=== PATIENT | male | born 1990 | race Caucasian/White ===

== ENCOUNTER 2016-09-06 10:25 | Inpatient (IN) | payer OTHER ==
[~2016-09-06] VITALS: Ht 170.2 cm; Wt 61.3 kg
--- NOTE | ~2016-09-06 | TXPLANREV ---
"PATIENT: TIAN PIZARRO | | [facility] UNIT #: [id number] | [address] AGE/SEX: 25 M : [birth year] | [address] | [place] [address] ADMIT/REG DATE: 09/06/16 | ROOM: [facility] LOC: ADTC | ADTC | Treatment Plan/Staffing Review Date: 09/26/16 Treatment plan was reviewed and determined appropriate as written: yes Treatment plan was reviewed and the following changes/addition/deletions are necessary: Client was assigned Letting Go the Need to Control and Spirituality. Discharge plans were reviewed and determined appropriate as previously documented: yes Discharge plans were reviewed and determined to be as follows: It is recommended that client go to a halfway house or 3/4 way house once he finishes residential treatment. It is highly recommended that he go to a 1/2 way house for the structure but he does not want to apply there. Other pertinent issues discussed during this staffing review include: Client was placed on contract due to being disrespectful to staff and clients. Staff Present: Pushpa Mix, Monica Thorne PRIMARY COUNSELOR: Sabrina Irvin Client Signature Counselor Signature Date Time "
--- NOTE | ~2016-09-06 | INDIVTXPL2 ---
"PATIENT: TIAN PIZARRO | | [facility] UNIT #: [id number] | [address] AGE/SEX: 25 M : [birth year] | [address] | [place] [address] ADMIT/REG DATE: 09/06/16 | ROOM: [facility] LOC: ADTC | ADTC | Individualized Treatment Plan DATE: 09/13/16 Problem Statement/Issue Identifed: Client needs to become familiar with basics of recovery as he is new to treatment and Twelve Step Program. Goal: Client is to learn about drug addiction, identifying consequences of his use and learn how to work the AA/NA program to succeed with being clean and sober. Objectives/Activities to achieve goal: 1. Client is to read and fill out How to Get Started in Treatment, identifying how his addiction has progressed and share with his counselor and selected pages in group. Due Date: 09/19/16 Complete: Incomplete: 2. Client is to complete Step 1, learning how he has compromised his core values, and share with his counselor and selected pages in group. Due Date: 09/19/16 Complete: Incomplete: 3. Client is to attend AA/NA meetings weekly, find a temporary sponsor and call him weekly while in treatment and share his progress with his counselor. Due Date: 09/28/16 Complete: Incomplete: Client Signature Date Counselor Signaure: Date Outcome/Measurement of Progress Towards Goal: Counselor Signature: Date "
--- NOTE | ~2016-09-06 | TXPLANREV ---
"PATIENT: TIAN PIZARRO | | [facility] UNIT #: [id number] | [address] AGE/SEX: 25 M : 88 | [address] | [place] [address] ADMIT/REG DATE: 09/06/16 | [facility] LOC: ADTC | ADTC | Treatment Plan/Staffing Review Date: 09/20/16 Treatment plan was reviewed and determined appropriate as written: Client is emmettlty working on his feelings letters to his mom, sisters, and daughter. Client has also been assigned to ask for and gain 5 phone numbers of males in the 12 Step Program. Treatment plan was reviewed and the following changes/addition/deletions are necessary: No changes Discharge plans were reviewed and determined appropriate as previously documented: Client is wanting to go to a 1/2 or 3/[address] way house once he is discharged from [facility] and has filled out applications for the [facility], [facility], and [facility]. Discharge plans were reviewed and determined to be as follows: same as above Other pertinent issues discussed during this staffing review include: None Staff Present: Marcelle Beltran, Bonnie Davis PRIMARY COUNSELOR: Sabrina Irvin Client Signature Counselor Signature Date Time "
--- NOTE | ~2016-09-06 | RESCARESUM ---
PATIENT: TIAN PIZARRO | | [facility] UNIT #: [id number] | [address] AGE/SEX: 25 M : 88 | [address] | [place] [address] ADMIT/REG DATE: 09/06/16 | ROOM: [facility] LOC: ADTC | ADTC | Summary of Residential Care Primary Counselor: [facility] Date of Admission: 09/04/16 Date of Discharge: 09/28/08 Referral Source: self Primary Care Provider Prior to Admission: No primary care provider Admitting Diagnosis: F15.20 Stimulant Use Disorder, severe; F12.20 Cannabis Use Disorder, severe; F17.200 Tobacco Use Disorder, severe Discharge Diagnosis: Same as Above Goals Achieved: Client finished Getting Started in Treatment, Step 1, Anger, Letting Go the Need to Control packet. Client verbalized understanding of the severity of his powerlessness and unmanageability related to his substance use but lacked the ability to control his emotions. Client walked out of treatment 3 days before he was to be discharged due to not being excepted into a 3/4 way house and would not complete the application for a 1/2 way house. Continued Obstacles to Sobriety/Relapse Issues: Client continues to struggle with his emotions and things he cannot control which leads to him lashing out at authority figures and other clients. For example, client did not get accepted into a 3/4 way house and refused to apply to a 1/2 way house stating "I can do it on my own. You guys didn't help me one bit." He then left treatment AMA 3 days before he was to be discharged. Family Issues Addressed: Client attended family education. Y Individual Therapy Y Group Therapy Y Educational Series on Substance Abuse N Parents/Significant Others Attended Family Program N Acute Medical Problems During the Course of Treatment N Transferred to Hospital During the Course of Treatment Y Accepting of Substance Abuse Problem N Non-accepting of Substance Abuse Problem N Required Psychological or Psychiatric Consultation During the Course of Treatment Completed AA Step # 1 During This Level of Care Significant Incidences During Treatment: Client was placed on contrtact his second week in treatment due to using profanity towards the supervisor operations and other clients when he was addressed about not helping out with community clean. Client also walked out of treatment 3 days before he was to be discharged because he was not accepted into a 3/4 way house and refused to apply for a half way house. PATIENT: TIAN PIZARRO | | [facility] UNIT #: [id number] | [address] AGE/SEX: 25 M : [birth year] | [address] | [place] [address] ADMIT/REG DATE: 09/06/16 | ROOM: [facility] LOC: ADTC | ADT | Summary of Residential Care Reason For Discharge: N Completed Residential TX Goals and Ready For Next Level of Care Y Left Tx Against Medical Advice/Treatment Goals Not Complete N Completed Residential Tx Goals But Refusing Continuing Care Recommendations N Discharged Due to Noncompliance/Treatment Goals not Completed N Discharged Earlier Than Planned Due to: Continuing Care Plan/Recommendations: N Intensive Partial Care Y Sponsor N Partial Care Y AA Meetings/NA Meetings N Outpatient N Co-dependency Services N Therapeutic Community Y 1/2 Way House Y 3/4 Way House N Mental Health Therapy N Marriage Counseling N Other Specific Continuing Care Plan: It is recommended that client return to residential treatment and succesfully complete the program and then transition to a half way house, attend 4-5 AA/NA meetings per week, gain a sponsor, and work a strong program of recovery. PRIMARY COUNSELOR: Sabrina Irvin
--- NOTE | ~2016-09-06 | CLPRLASSUM ---
PATIENT: TIAN PIZARRO | | [facility] UNIT #: [id number] | [address] AGE/SEX: 25 M : 88 | [address] | [place] [address] ADMIT/REG DATE: 09/06/16 | ROOM: [facility] LOC: ADTC | ADTC | Client Problem List/Assessment Summary Date: 09/13/16 Problems identified by the client: Sick and tired of being sick and tired. Problems identified by significant others: drug use Client's Strengths: family, being a dad, funny Problem List: Client needs to become familiar with basics of recovery as he is new to treatment and Twelve Step Program. Client is experiencing family discord and distancing as a result of past drug usage. Client exhibits denial, minimization, and rationalization regarding his use of drugs. Client does not "reach-out to others for help" and instead resumes using drugs. Code Norman: T: to be addressed during course of treatment O: problem noted, expected to resolve itself with abstinence--specific tx plan not required R: problem noted, will be referred upon discharge PRIMARY COUNSELOR: Sabrina Irvin
--- NOTE | 2016-09-06 16:18 | NUR ---
ADMISSION NOTE Client is a 25 y/o single male, who states that he referred himself to treatment. Client was brought here today from [facility], by staff. Client had been there for 9 days. Client resides in [place] with his dad. Client states DOC is marijuana, last used 08/24/2016 when client smoked 2 bowls and meth, last used on the same date when client took,"a couple hits." Client states NKMA and brings no medications with him today. Client anticipates possible family group participation from his dad. Client was searched, no contraband found. Rights/Responsibilities: Copy given and explained to client. Signed and accepted by client. Client oriented to physical lay out of the ADTC unit, given Big Book and admission packet. A Adithya was assigned. Saqib
--- NOTE | 2016-09-06 19:08 | NUR ---
Step education/1 hr/ Focus was on step 11 Sought through prayer and meditation to improve conscious contact with God,praying for his will for us and the power to carry that out. Each person completed a set of questions then we discussed. This person participated.
--- NOTE | 2016-09-06 19:12 | NUR ---
Education 1HR: Clt watched half of video "Pleasures Unwoven" with staff present.
--- NOTE | 2016-09-06 20:14 | NUR ---
Individual Therapy, 1.0 hours, This session focused on orienting the client to how treatment works. Client was oriented to programming, release forms, bed checks, family education, rules, and the smoke hut. Clients treatment plan was also reviewed. Client called his mother to let her know where she was and talked to his 2 year old daughter.
--- NOTE | 2016-09-06 20:16 | NUR ---
Clients family was contacted to let them know when visiting hours were and informed of family education. Clients father was called but he was not available at this time due to working.
--- NOTE | 2016-09-06 20:16 | NUR ---
Rayshawn Note: Client has some trauma that will be addressed in individual counseling sessions.
--- NOTE | 2016-09-06 23:10 | NUR ---
Tech note: Clt played a game for rec and onsite AA mtg. Clt searched checked into room and had first into to grp. Had mtg with counselor. SE talking with daughter on phone
--- NOTE | 2016-09-07 04:26 | NUR ---
Bed Note: Clt lay motionless in bed with eyes closed showing no distress at all bed checks.
--- NOTE | 2016-09-07 13:00 | NUR ---
PEER REVIEWS 1 HR: Clt participated in peer reviews and took a risk to give open and honest feedback to those receiving a review.
--- NOTE | 2016-09-07 13:06 | NUR ---
Tech Note: Client is working on the Oculo Therapy Book.
--- NOTE | 2016-09-07 13:19 | NUR ---
Morning Group, /12 ratio, 1.5 hours, Client attended and actively participated in group. Client offered feedback to peers.
--- NOTE | 2016-09-07 22:37 | NUR ---
Tech note : Client watched movies, played games with peers and walked to an offsite AA meeting. He made a phone call to family, per counselor's permission. due to a deth in the family.
--- NOTE | 2016-09-08 04:08 | NUR ---
Bed note: Client was in bed with eyes closed and no distress at all bed checks.
--- NOTE | 2016-09-08 16:35 | NUR ---
Tech Note: Client attended N.A.Panel and is working on BB. Client had a visit today and also went for a walk.
--- NOTE | 2016-09-08 22:19 | NUR ---
Tech note : Client worked on [employer] or watched sports for rec this evening. Client walked to an offsite AA meeting.
--- NOTE | 2016-09-09 04:07 | NUR ---
Bed note: Client was in bed with eyes closed with no distress at all bed checks
--- NOTE | 2016-09-09 15:27 | HP ---
ADMIT: 09/06/2016 RM/LOC: [facility] MR#: [id number] [address] [place], [place] [address] TIAN PIZARRO [address] [place] [address] History and Physical SEX: M AGE: 25 : 1990 DATE OF SERVICE: CHIEF COMPLAINT: Chemical dependency. HISTORY OF PRESENT ILLNESS: Tian is a 25-year-old, single, male, admitted to residential level of treatment at [facility] on September 06 after detox at [facility] from August 28 through the . He states he just got sick and tired of doing drugs and he was afraid he was going to end up in group home, so he checked himself into treatment. Tian states his drug of choice was marijuana. He first started smoking pot at 11 years of age with friends. He states in chet high and high school, he smoked daily, large unknown amount. He states he really never paid attention, a unit of pot. His heaviest smoking was the last 6 years. States that he smoked before and after work and would smoke on weekends. Frequently he would smoke all day. His last marijuana was August 24 prior to going to [facility]. Second drug of choice is methamphetamines. He first started snorting meth when he was around 15 years of age. Initially it was once a week. He states he started using it on a daily basis off and on at 20. He described it as sporadic use. He states he would use a gram or so. He denies any IV drug use. His last methamphetamine use was August 24. He denies that alcohol was ever a drug of choice. He states he never really liked to drink. States he never tried any other illicit drugs. PAST MEDICAL HISTORY: Operations none. Illnesses include ADHD. MEDICATIONS: Include: 1. Wellbutrin XL 300 mg once daily. 2. He states he was on Wellbutrin SR 200 mg b.i.d. and it worked much better. 3. He also takes trazodone for sleep. ALLERGIES: NONE KNOWN. LACTOSE INTOLERANCE, ALTHOUGH NO KNOWN ALLERGIES ARE NOTED. SOCIAL HISTORY: A 25-year-old, single, male. He has a 2-year-old daughter. 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 Currently smokes half pack cigarettes daily. FAMILY HISTORY: Remarkable for heart disease in mother, maternal grandfather, and mother. Cancer in his maternal uncle. Hypertension in his mother and maternal grandfather and mother. Diabetes in mother and maternal grandfather and mother. Stroke in his mother and maternal grandfather. REVIEW OF SYSTEMS: Negative. PHYSICAL EXAM: GENERAL APPEARANCE: 25-year-old, thin male, who is ADMIT: 09/06/2016 RM/LOC: [facility] MR#: [id number] [address] [address] TIAN PIZARRO [address] [place] [id number] History and Physical SEX: M AGE: 25 : 1990 alert, oriented, in no acute distress. VITAL SIGNS: Blood pressure is 129/73 with a height of 5 feet 7 inches, weight is 61 kg, temperature is 79.9 with pulse 85. HEENT: Pupils reactive. TMs normal. Throat normal. NECK: Normal. HEART: Regular without murmur. LUNGS: Clear. ABDOMEN: Soft, nontender, and benign. AND RECTAL: Deferred. EXTREMITIES: Reveal no clubbing, cyanosis, edema, tracks, or splinter hemorrhages. NEUROLOGIC: Exam is normal including light touch, strength, DTRs. ASSESSMENT: Cannabis use disorder, severe; stimulant use disorder, severe; attention deficit hyperactivity disorder; and tobacco use disorder. PLAN: We will start him on a multivitamin and thiamine. Proceed with drug and alcohol abuse dependency treatment and counseling. We will switch him from Wellbutrin XL to Wellbutrin SR, continue his trazodone and proceed with further evaluation and management based on course during hospitalization. Please see his hospital record for the details. Emre Escalante MD/ allan JOB #: [id number] CC: Emre Escalante MD, Attending Physician NO FAMILY PHYSICIAN, Family Physician
--- NOTE | 2016-09-09 16:51 | NUR ---
Tech Note: Client attended scientology in the morning and received a visit in the afternoon. Client stated that he is working on, "Twelve steps."
--- NOTE | 2016-09-09 22:57 | NUR ---
tech note: Client attended onsite AA Panel & participated in Community Clean. Client watched tv. SE: hiding Easter Eggs.
--- NOTE | 2016-09-10 04:32 | NUR ---
tech note: client was motionless in no distress at all bed checks.
--- NOTE | 2016-09-10 10:19 | NUR ---
Tech Notes: Client is working on Getting Started
--- NOTE | 2016-09-10 11:04 | NUR ---
Education Note: Client watched video for education today.
--- NOTE | 2016-09-10 12:46 | NUR ---
Morning Group, 06/07, 1.5 hours, Client attended and actively participated in group. Client shared his hurt and ashame of treating his sister so bad. Client offered feedback to his peers and accepted feedback given to him
--- NOTE | 2016-09-10 16:00 | NUR ---
RECOVERY 101 1 HR/ All clients participated in discussing what are the fundamentals of what they learn at AA/NA meetings that will help them succeed in recovery such as meetings, sponsor, home group, working steps, service work, attending functions, slogans/acronyms as tools, etc. This client was involved and asked questions.
--- NOTE | 2016-09-10 19:16 | NUR ---
Education: 1 Hour. Client attended "Communications" lecture presented by staff.
--- NOTE | 2016-09-10 23:35 | NUR ---
Client attended N.A.Meeting and went on a walk for rec. SE: Found some of the roots for what causes his addiction
--- NOTE | 2016-09-11 04:22 | NUR ---
Bed note: Client was in bed with eyes closed with no distress at all bed checks
--- NOTE | 2016-09-11 12:19 | NUR ---
[place] res group 1 hr/ratio 1:9/ Group heard feelings letters and a step one. Discussed how addiction has affected others and how we can turn things around. This client gave feedback and related.
--- NOTE | 2016-09-11 15:44 | NUR ---
Tech Note: Client participated in light stretching for monring exercise and went for an outdoor walk in the afternoon. Client stated that he is working on, "How to Get Started in Treatment."
--- NOTE | 2016-09-11 17:00 | NUR ---
Individual Therapy, 1.0 hours, This session focused on reviewing clients BPS with client and the chain of events that had gotten him into treatment. Client's Getting Started packet was also reviewed and selected pages were assigned for him to share in group.
--- NOTE | 2016-09-11 17:14 | NUR ---
Relapse Prevention, 06/15, 1.0 hours, Client attended and actively participated in relapse prevention education which focused on high risk situations.
--- NOTE | 2016-09-11 18:52 | NUR ---
med note: client complained of headache-pain level 3. motrin was given
--- NOTE | 2016-09-11 19:23 | NUR ---
Education note: 1 hour watched video "enabler".
--- NOTE | 2016-09-11 19:33 | NUR ---
education note: 1 hour lecture by [facility] on hiv/aid/std. plus clients wwere tested for HIV.
--- NOTE | 2016-09-11 22:18 | NUR ---
Tech note: Client did not walk for rec as he was waiting for results from HIV testing. He participated in guided meditation and attended an onsite Aa meetinf.
--- NOTE | 2016-09-12 05:31 | NUR ---
Bed note : Client was in bed with eyes closed and no movement at all bed checks.
--- NOTE | 2016-09-12 12:35 | NUR ---
AM GROUP 11:1/1.5 HR: Client and peers helped to ORIENT A NEW PEER TO GROUP GUIDELINES, GOALS AND OBJECTIVES. Client and peers heard several individuals process assignments and some discussion on the disease concept. This client had asked for time to process from GETTING STARTED packet but was unfortunately the last to request time and thus the last to process. He seemed to need to hurry through the packet, describing what sounded like a somewhat "normal" childhood and adolescence. Then client started talking about vandalism, legal consequences, drugs, etc. Staff asked client how he got so off track from his early beginnings. Client became very defensive declaring, "Because I wanted to be a gang member!!" Staff was surprised, suggesting that it isn't very often that I hear something like that as a goal, but more as an ultimate outcome of illegal behaviors/drug use. Client said that he wasn't satisfied with the person he was and thought he needed to be someone else (codie I guess?). Client said he is now sick of that behavior and lifestyle and just wants to be a good dad for his 2 y/o daughter. Client still seems pretty angry and over-reactive.
--- NOTE | 2016-09-12 13:44 | NUR ---
Tech Note: Outside speaker Bari Estrada spoke at 1300. Client attended and is working on Step 1.
--- NOTE | 2016-09-12 17:28 | NUR ---
SPIRITUAL EDUCATION 1 HR. Topics today were clarifying the differences between spirituality and adventist, and playing the spiritual challenge game where they are asked thought provoking open ended questions. It is meant to inspire spiritual line of thought.
--- NOTE | 2016-09-12 22:47 | NUR ---
Tech Note : Client participated in rec by playing catch phrase and attended an onsite NA meeting.
--- NOTE | 2016-09-12 23:40 | NUR ---
Education: 1 Hour. Client attended "Disease Concept" presented by counselor.
--- NOTE | 2016-09-13 05:40 | NUR ---
Bed Note: Client was motionless with eyes closed at all bed checks.
--- NOTE | 2016-09-13 13:39 | NUR ---
PEER REVIEWS 1 HR: Clt participated in peer reviews and took a risk to give open and honest feedback to those receiving a review. The last half hour of group clients talked about loved ones and dying.
--- NOTE | 2016-09-13 15:23 | NUR ---
Individual therapy, 1.0 hours, This session focused on developing clients problems/needs list along with his treatment plan. Client shared that he thinks he can stay away from drugs but will still drink "a few beers" here and there. Client stated alcohol has never been his problem. Client was asked to make a list of pros and cons of drinking and bring it back for his next session to discuss.
--- NOTE | 2016-09-13 15:29 | NUR ---
Tech Note: Client participated in light stretching for morning exercise. Client stated that he is working on Step One.
--- NOTE | 2016-09-13 15:48 | NUR ---
Education 1 Hour: Client heard from a member of the recovery community who shared his experience, strength and hope.
--- NOTE | 2016-09-13 16:31 | NUR ---
Step Education 1 hr/ Focus was on step 12 "having had a spiritual awakening", each person completed a set of questions on paper and then we discussed. This client participated.
--- NOTE | 2016-09-13 19:43 | NUR ---
Tech note: client was off the unit for [employer] banquet and speaker event
--- NOTE | 2016-09-14 11:30 | NUR ---
Group 1.5 hr/ 10:1 Clients all heard peers share feelings letters and this client was attentive, heard others talk about parents not being there for them.
--- NOTE | 2016-09-14 13:56 | NUR ---
Tech Note: Client went with group on an outdoor walk. Client is working on Step 1.
--- NOTE | 2016-09-14 16:02 | NUR ---
Education Note: Client watched "How to Sabotage Your Treatment"
--- NOTE | 2016-09-14 16:30 | NUR ---
PEER REVIEWS 1.0 HR: Clt participated in peer reviews and took a risk to give open and honest feedback to those receiving a review.
--- NOTE | 2016-09-14 23:01 | NUR ---
TECH NOTE: Client participated in reading [employer], watched tv/movies, attended optional off site AA meeting. SE: getting clothes
--- NOTE | 2016-09-15 04:06 | NUR ---
Bed Note: Clt lay motionless in bed with eyes closed showing no distress at all bed checks.
--- NOTE | 2016-09-15 15:20 | NUR ---
Tech Note: Client is working on Step 1.
--- NOTE | 2016-09-15 22:56 | NUR ---
TECH NOTE: Client played a game for REC, attended off site AA meeting, watched TV/movies SE: phone
--- NOTE | 2016-09-16 04:49 | NUR ---
Bed Note: Clt lay motionless in bed with eyes closed showing no distress at all bed checks.
--- NOTE | 2016-09-16 15:25 | NUR ---
Tech Note: Client participated in Big Book and stated that he is working on Step One.
--- NOTE | 2016-09-16 22:59 | NUR ---
Tech Note: Client attended A.A.Panel and participated in community clean. SE:Apolonia Johnson
--- NOTE | 2016-09-17 04:52 | NUR ---
Bed Note: Client was motionless with eyes closed at all bed checks.
--- NOTE | 2016-09-17 10:23 | NUR ---
Tech notes: Client is working on Fl's
--- NOTE | 2016-09-17 15:21 | NUR ---
Individual Therapy, 1.0 hours, This session focused on review of clients Step 1 and completing releases of information to go to a 1/2 or [address] house. Client is wanting to do outpatient treatment with [facility]. Client also talked about his clinical informatics director and father and how he is greatful for them and their support.
--- NOTE | 2016-09-17 15:46 | NUR ---
Morning Group, 1.5 hours, 06/16 Clients all participated in 2 family sculptures with role-playing, feedback, and how they related.
--- NOTE | 2016-09-17 16:03 | NUR ---
RECOVERY EDUCATION 1 HR. Todays topic was on denial; good, bad, and levels, life problems being 85 percent of recovery, and distorted thinking patterns that can keep us stuck.
--- NOTE | 2016-09-17 16:31 | NUR ---
Education note: Client watched video "Nightmare on [address]"
--- NOTE | 2016-09-17 18:44 | NUR ---
Education: 1 Hour. Client attended "Feelings" lecture given by staff.
--- NOTE | 2016-09-17 22:12 | NUR ---
Tech note: Client participated in rec by playing Collactive outside. Client attended an onsite NA meeting.
--- NOTE | 2016-09-18 04:16 | NUR ---
BED NOTE: client was in bed, motionless with eyes closed all three bed checks.
--- NOTE | 2016-09-18 11:30 | NUR ---
GROUP 1.5 HRS. 1:9 Clients oriented new peer to purpose and rules of group. This client owned that he was mad but stated he didn't want to talk about it and people needed to leave him alone so he didn't blow up and get violent like he has in the past. He was confronted about that being a threat, which he denied and became defensive. Client was encouraged to share about what is going on with him and he did finally identify the fear. He shared concerns about recommendations of sober living and his fear that it won't work out. He is encouraged to stay in today and continue to talk about his fear, rather than react with anger. Client shared he is institutionalized as he was first locked up at age 11. He shed tears as he verbalized a desire to change. Client thanked counselor for helping him.
--- NOTE | 2016-09-18 16:18 | NUR ---
Relapse Prevention, 06/13 ratio, 1.0 hours, Client attended and actively participated in relapse prevention education which focused on personal reactions to high risk situtations such as personal reactions vs. personal responses, addictive thinking, irresponsible thinking, addictive behavior, irresponsible behavior, instant gratification, and emotional consequences to thoughts and actions.
--- NOTE | 2016-09-18 16:35 | NUR ---
Tech Note: Client listened to speaker Emre share his experience, strength and hope. Client is working on Feelings Letters and the Big Book.
--- NOTE | 2016-09-18 19:33 | NUR ---
Education : 1 hour lecture given by counselor on feelings.
--- NOTE | 2016-09-18 22:16 | NUR ---
Tech note: Client played catchphrase for rec, participated in guided meditation and attended AA meeting. SE:am group
--- NOTE | 2016-09-19 04:25 | NUR ---
Bed note: client was in bed with eyes closed and no distress at all bed checks.
--- NOTE | 2016-09-19 10:05 | NUR ---
Tech notes: Client is working on Fl's
--- NOTE | 2016-09-19 11:30 | NUR ---
GROUP 1.5 HRS. 1:10 Group discussion included feelings letter to mom, HOW TO GET STARTED IN TREATMENT and step 1 ASSIGNMENTS. This client shared pgs. 3, 10 and 11 identifying preoccupation, betraying values and effects on others. He initially only had 4 examples written for effects on others but was able to verbalize others.
--- NOTE | 2016-09-19 12:24 | NUR ---
AM GROUP 10:05/27.5 HR: Client and peers participated in the ORIENTATION OF THIS AND ANOTHER NEW PEER TO GROUP GUIDELINES, GOALS AND OBJECTIVES. Client identified alcohol as his drug of choice stating that he has had four DUI's. 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 Client identified this as his first treatment. All were involved as three group members processed their work from assignments. Multiple members related, several shared from their own experiences providing support and encouragement. This client asked clarifying questions from time to time, but was mostly quiet.
--- NOTE | 2016-09-19 13:30 | NUR ---
Education note: Client watched video
--- NOTE | 2016-09-19 16:26 | NUR ---
SPIRITUAL EDUCATION 1 HR. Todays topic was the ADDICTIVE SELF vs. SPIRITUAL SELF. We held discussion on who we are in our addiction vs who we are in recovery and contrasted the two.
--- NOTE | 2016-09-19 18:33 | NUR ---
Education: 1 hour lecture on self esteem given by counselor
--- NOTE | 2016-09-19 22:50 | NUR ---
Client did beads for rec and attended N.A.Meeting. SE: N.A.Meeting
--- NOTE | 2016-09-20 04:00 | NUR ---
Bed note: client was in bed with eyes closed and no distress at all bed checks.
--- NOTE | 2016-09-20 11:59 | NUR ---
Group 1.5 Hr Ratio 1:10/Topics today were a Getting Started packet, a Relapse prevention and a Self worth packet. Client shared how he could relate to what peers were sharing and also asked how cigeratte smoking could affect anxiety.
--- NOTE | 2016-09-20 15:28 | NUR ---
Tech Note: Client participated in Spiritual Enrichment in the morning and went for an outdoor walk after lunch. Client stated that he is working on writing Feelings Letters.
--- NOTE | 2016-09-20 16:16 | NUR ---
Education 1 Hour: Client heard a presentation on cross addiction.
--- NOTE | 2016-09-20 16:24 | NUR ---
Step ed. 1 hr/ focus was on step one and powerlessness. Each person answered a set of questions on paper and then we discussed out loud. This client participated.
--- NOTE | 2016-09-20 23:13 | NUR ---
TECH NOTE: Client did newcommer bookmarks for REC, participated in guided meditation, and attended AA meeting. SE: all day
--- NOTE | 2016-09-21 01:21 | NUR ---
1 HR EDUCATION: Client watched a video "Say Yes to Life" by Father Price Morelos
--- NOTE | 2016-09-21 04:42 | NUR ---
Bed Note: CLt lay motionless in bed with eyes closed showing no distress at all bed checks.
--- NOTE | 2016-09-21 11:30 | NUR ---
GROUP 1.5 HRS. 1:10 Clients participated in orienting new peers to purpose and rules of group. Discussion included consequences of addiction including the effects on family and loved ones as well as feelings and acceptance.
--- NOTE | 2016-09-21 13:57 | NUR ---
Individual Therapy, 1.0 hours, This session focused on review of clients feelings letters to both his sisters, his mother, and his daughter. Client became very emotional when he read these letters. When client began to explain certain situations he began to blame his mother and one of his sisters for being the way he was. Client was recommended to try and look at the situation from their point of view. Client was willing to try and do this.
--- NOTE | 2016-09-21 14:54 | NUR ---
PEER REVIEWS 1.5 HRS: Clt participated in peer review process and took a risk to give open and honest feedback.
--- NOTE | 2016-09-21 16:24 | NUR ---
Tech Note: Clt watched "Relapse" for afternoon video. Clt is working on Feelings Letters and reading the Big Book.
--- NOTE | 2016-09-21 22:44 | NUR ---
Tech note: Client watched tv and movies.
--- NOTE | 2016-09-22 05:22 | NUR ---
Bed note : Client was in bed motionless with eyes close at all bed checks.
--- NOTE | 2016-09-22 15:39 | NUR ---
Tech Note: Client attended A.A.Meeting at [facility] and [place] and then helped with the clubhouse cleaning, ate lunch, and listened to a speaker. Client is working on BB
--- NOTE | 2016-09-22 20:47 | NUR ---
tech note: Client played a game for recreation & attended offsite AA meeting.Client watched tv. SE: AA meeting.
--- NOTE | 2016-09-23 03:53 | NUR ---
tech note: client c/o level 3 headache @ 1353,motrin 400 mg was given.
--- NOTE | 2016-09-23 05:24 | NUR ---
Bed note: Client was in bed motionless with eyes closed at all bed checks. Client was up after first bed check for a drink and later in the shift for meds.
--- NOTE | 2016-09-23 16:21 | NUR ---
TECH NOTE: Client participated in Chapter 5 of Big Book study, attended study time, and watched tv/movies. Had visitors
--- NOTE | 2016-09-23 23:08 | NUR ---
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 Client had an attitude with the tech when he was told he needed to get off the phone because it was time for community clean. Client made a statement that he would just eating disorder psychologist line for meds. Client then came up and stood at the tech station counter and was told by tech he can't be standing there during med pass. Client told the tech "to quit picking on him." Client was mumbling under his breath & a male peer said to him "you always have to have the last word,don't you." Client's dad told tech that he wanted to give his son some money. 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 SE: .
--- NOTE | 2016-09-24 04:39 | NUR ---
Bed Note: Clt lay motionless in bed with eyes closed showing no distress at all bed checks.
--- NOTE | 2016-09-24 11:14 | NUR ---
Tech notes: Client is working on BB
--- NOTE | 2016-09-24 13:00 | NUR ---
Morning Group, 06/04 ratio, 1.5 hours, Client attended and actively participated in group discussion. Client read his feelings letters to his sisters and mother. Client accepted feedback about the letters and also apologized to the group for his anger outburst towards Monica.
--- NOTE | 2016-09-24 15:40 | NUR ---
Education note: Client attended speaker for education, Tana on Tobacco
--- NOTE | 2016-09-24 16:00 | NUR ---
Recovery 101 1 hr/ Clients all participated in reading, highlighting and discussing the Big Book on areas about honest, acceptance, living in problem vs living in solution, resentments, 1/2 measures, and the 12 promises.
--- NOTE | 2016-09-24 18:14 | NUR ---
Education: 1 hour lecture given by counselor on "forgiveness"
--- NOTE | 2016-09-24 22:28 | NUR ---
Tech note : Client went on a walk for rec and attended an onsite NA meeting. SE; All day
--- NOTE | 2016-09-25 04:16 | NUR ---
Bed note: Client was in bed with eyes closed and no distress at all bed checks.
--- NOTE | 2016-09-25 10:18 | NUR ---
Individual Therapy, 1.0 hours, This session focused on client being placed on contract due to using profanity towards staff and Monica. Client was given the book of releasing anger and was to report what he could relate to in the book. Client stated the book said that you should be able to get angry in recovery because that is how you get your feelings out. Client was urged to re-read the book and see if he could look at things in a different perspective. Client agreed to do this.
--- NOTE | 2016-09-25 12:46 | NUR ---
A.M. 1.5 hr res group/ratio 1:10/ Group heard a getting started and a goodbye letter to addiction. Discussed having resentment towards self, how kids are forgiving, and we oriented 3 new group members. This client teared up when talking about his daughter and said he feels like he abandoned her.
--- NOTE | 2016-09-25 13:20 | NUR ---
Tech Note: Client participated in light stretching for morning exercise and went for an outdoor walk in the afternoon. Client stated that he is working on, "Adan' Thinkin." Client refused his morning medication, stating that he thought it was making him angry. When asked why he thought the medication was the cause client stated, "Normally I am never angry."
--- NOTE | 2016-09-25 13:35 | NUR ---
Education One Hour: Client heard a presentation on Sexually Transmitted Disease.
--- NOTE | 2016-09-25 16:05 | NUR ---
Relapse Prevention Education, 1.0 hours, Client attended and actively participated in relapse prevention education which focused on a Relapse Prevention Quiz and discussion over the answers.
--- NOTE | 2016-09-25 20:29 | NUR ---
education note: 1 hour lecture by counselor on" what correa are you willing to pay"
--- NOTE | 2016-09-25 22:51 | NUR ---
Tech note: Client attended the Alumni meeting, participated in guided meditation and attended an onsite AA meeting. SE; All day
--- NOTE | 2016-09-26 04:57 | NUR ---
Bed note: Client was in bed with eyes closed and motionless at all bed checks.
--- NOTE | 2016-09-26 10:39 | NUR ---
Madeleine notes: Client is working on Adan Price
--- NOTE | 2016-09-26 11:30 | NUR ---
GROUP 1.5 HRS. 1:11 Discussion included the need for appropriate boundaries on the unit and working towards recovery/new behaviors, not addiction/old behaviors. Clients also discussed the effects on addiction as peers had parents that were addicts and then became the parent who addiction effected their own kids. This client encouraged peer to share feelings as he reports it helped him to do so last week in group.
--- NOTE | 2016-09-26 12:36 | NUR ---
Education note: Client had education by [facility]
--- NOTE | 2016-09-26 17:28 | NUR ---
SPIRITUAL EDUCATION 1 HR. Todays topics were orienting newcomers, and taking a look at Semaj Perez's 5 SECRETS TO SUCCESS which include a look at the miracles of the human body as blessings.
--- NOTE | 2016-09-26 20:57 | NUR ---
education: 1 hour video on unresolved anger and group discussion with counselor
--- NOTE | 2016-09-26 22:11 | NUR ---
Tech note: Client worked on beaded project and attended an onsite NA meeting. SE; NA meeting
--- NOTE | 2016-09-27 04:03 | NUR ---
Bed note: Client was in bed with eyes closed and no distress at all bed checks.
--- NOTE | 2016-09-27 10:28 | NUR ---
Tech Note: Client participated in Spiritual Enrichment. Client stated that he is working on reading the Big Book.
--- NOTE | 2016-09-27 12:54 | NUR ---
Group 1.5 Hr Ratio 1:10/Topics today were a relapse prevention, a feelings letter, a getting started and two step one's. Client shared how he could relate to what peers were sharing.
--- NOTE | 2016-09-27 13:39 | NUR ---
Education 1 Hour: Client heard a presentation from a member of the recovery community who shared his experience, strength and hope.
--- NOTE | 2016-09-27 16:33 | NUR ---
FAMILY EDUCATION 3 HRS. Client attended alone and took part in the discussion on the disease concept. Client shared chemical history and the consequences.
--- NOTE | 2016-09-27 18:00 | NUR ---
Individual Therapy, 1.0 hours, Client read his feelings letter to his older sister whom was like a mother to him. Client then talked about some resentments and guilt he had towards her and resentments he thought she may have towards him. 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
--- NOTE | 2016-09-27 23:44 | NUR ---
Tech Note: Client attended Guided Meditation and A.A.Meeting. Client apologized for his disrespect on Saturday night towards tech. SE: All Day
--- NOTE | 2016-09-28 04:25 | NUR ---
Eduction: 1 Hour. Client attended "Unresolved Anger" video & discussion presented by staff.
--- NOTE | 2016-09-28 11:30 | NUR ---
GROUP 1.5 HR/ 11:1 Clients all reviewed rules and heard new member share about himself. This client was attentive and gave some feedback.
--- NOTE | 2016-09-28 13:00 | NUR ---
PEER REVIEWS 1.5 HRS: Clt participated in peer review process and received his own. He heard he has a temper, needs to think about what he's saying or doing before he does or says it, is hotheaded, defensive, impulsive, hard on himself, is a follower, thrives on attention, is controlling, sensitive, puts on a front, uses laughter to cover his feelings, has a scam going on in [place], too much pride. He felt glad and afraid.
--- NOTE | 2016-09-28 16:23 | NUR ---
Tech Note: Client participated in group walk for exercise and watched "Recovery Issues Part 3" for afternoon video. Client is working on the [employer] Book.
--- NOTE | 2016-09-28 22:49 | NUR ---
TECH NOTE: Client participated in reading guidelines and watched tv/movies. SE: all day
--- NOTE | 2016-09-29 04:10 | NUR ---
Bed Note: Clt lay motionless in bed with eyes closed showing no distress at all bed checks.
--- NOTE | 2016-09-29 16:03 | NUR ---
Tech Note: Client attended NA Panel and is working on [employer] and the Big Book.
--- NOTE | 2016-09-29 20:25 | NUR ---
Tech note: Clt played a game for recreation and attended offsite AA mtg. Watched tv and used phone. SE was seeing dad and kids
--- NOTE | 2016-09-30 04:37 | NUR ---
Bed Note: Clt lay motionless in bed with eyes closed showing no distress at all bed checks.
--- NOTE | 2016-09-30 15:50 | NUR ---
Tech Note: Client participated in Big Book Study. Client stated that he is working on reading the Big Book and expects an interview with a sober living facility.
--- NOTE | 2016-09-30 22:46 | NUR ---
Tech Note: Clt attended AA panel, played game with peers, used phone and watched tv. SE was FL's
--- NOTE | 2016-10-01 04:39 | NUR ---
Bed Note: Clt lay motionless in bed with eyes closed showing no distress at all bed checks. Clt came out of room at 2342 hrs for a drink of water.
--- NOTE | 2016-10-01 10:16 | NUR ---
Madeleine notes: Client is working on BB and mtg with [facility]
--- NOTE | 2016-10-01 11:30 | NUR ---
Morning Group, 06/05, 1.5 hours, Client attended and actively participated in group discussion. Client shared his anger towards another peer and that he would not take his own advice. Client was accepting of peers feedback.
--- NOTE | 2016-10-01 13:31 | NUR ---
Education: Client attended education by Marcelle on Infection prevention.
--- NOTE | 2016-10-01 18:12 | NUR ---
Education: 1 Hour. Client attended "Adult Children of Alcoholics" lecture presented by staff.
--- NOTE | 2016-10-01 21:00 | NUR ---
FAMILY EDUCATION 3 HRS., GROUP 4 HRS. 1:5 Client attended alone and took part in the discussion on the family roles, codependency and detachment. He related to mascot and scapegoat roles. Client shared letters he had written to his mom and sister. He admitted that he did not use the outline and became defensive as counselor and peers attempted to give him feedback about blaming his mom. He was not open to feedback and repeatedly became angry and would talk rapidly until redirected to stop. He denies holding resentments towards his mom despite repeatedly giving detailed examples of how she did not parent him the way she "should" and idea that he would not have been the way he is IF she would have only told him. He had read the letter to his mom on the phone over the weekend and admitted that it hurt her. She did apologize to him and stated she would go to meetings with him and client was glad. He did not seem to grasp the idea that he needs to take responsibility for himself.
--- NOTE | 2016-10-01 23:31 | NUR ---
tech note: Client played a game for recreation & attended onsite NA meeting. SE: All day.
--- NOTE | 2016-10-01 23:33 | NUR ---
tech note: Client played a game for recreation & attended onsite NA meeting. SE: All day.
--- NOTE | 2016-10-02 04:32 | NUR ---
BED NOTE: Client was in bed, motionless with eyes closed all three bed checks.
--- NOTE | 2016-10-02 11:15 | NUR ---
Discharge Note: Client left AMA. Refused to talk to counselor and already had belongings packed in bags. Said that he wasn't going to sober living house and needed to start looking for a job. No medications to take with him.
--- NOTE | 2016-10-02 11:35 | NUR ---
A.M. 1.5 hr res group/ratio 1:10/ Assignments shared were a how to get started and a letter to self. Discussion focused on resenting self, forgivness, feeling afraid and out of place and believing in self. This client had said he needed to go to the bathroom but knew he could not come back. He waited awhile and then got his books and left.
--- NOTE | 2016-11-19 12:53 | DS ---
ADMIT: 09/06/2016 RM/LOC: [facility] MR#: [id number] [facility] [address] [place], [place] [id number] TIAN PIZARRO [address] [place] [address] General Discharge Summary SEX: M AGE: 25 : 1990 ADMISSION DATE: 09/06/2016 DISCHARGE DATE: 10/02/2016 INDICATION FOR HOSPITALIZATION: Tian is a 25-year-old, single, male, admitted to residential level treatment at [facility] on September 06 after detox at [facility] August 28 through the . His drug of choice on admission is marijuana. Second drug of choice methamphetamines. Please see his admission H and P for the details regarding his history of present illness, past medical history, physical exam, and assessment at time of hospitalization. HOSPITAL COURSE: On admission, he was started on multivitamin and thiamine. Trazodone was ordered for sleep disorder, and Wellbutrin dose was adjusted for his ADHD. Later, his Wellbutrin was discontinued per the patient's request. The patient developed a stye in his right eye and ultimately this was treated with Keflex and compresses with improvement. During treatment, his primary counselor was Sabrina Irvin. During treatment, he underwent individual and group therapy sessions on drug and alcohol abuse and dependency. He completed an educational series on substance abuse. He was overall accepting of substance abuse problems. He attended the family portion of his treatment program. Relapse triggers were identified, and relapse prevention plan was outlined. Actually, he walked out of treatment 3 days before scheduled discharge to not being accepted in 3/4 way house. He completed step 1 of Alcoholics Anonymous. Issues regarding profanity were addressed during his treatment program. Reason for discharge was leaving treatment against medical advice. Aftercare recommendations include completion of residential level treatment program with sponsor assignment in long term or 3/4 way house placement and active AA and NA meeting involvement. MEDICATIONS AT TIME OF DISCHARGE: None as the patient left AMA. ADMIT: 09/06/2016 RM/LOC: [facility] MR#: [id number] [id number] TIAN PIZARRO [address] [place] [address] General Discharge Summary SEX: M AGE: 25 : 1990 LABORATORY AND X-RAY DATA: None indicated. FINAL DISCHARGE DIAGNOSES: Include: 1. Cannabis use disorder, severe. 2. Stimulant use disorder, severe. 3. Attention deficit hyperactivity disorder. 4. Tobacco use disorder. PROCEDURES: Include attempts at drug and alcohol abuse dependency treatment and counseling with the patient leaving AMA. He has had final diagnoses of stye in right eye resolved on discharge. Emre Escalante MD/ allan JOB #: [id number] CC: Emre Escalante MD, Attending Physician FAMILY PHYSICIAN, Family Physician
== END 2016-10-02 11:18 | disposition left against medical advice (07) | DRG 894 ==
LOC: ADTC 10:54
PROVIDERS: ADMIT Family Medicine
PROC: HZ34ZZZ Individual Counseling for Substance Abuse Treatment, Interpersonal (ICD-10-PCS; principal; 2016-09-06)
PROC: HZ43ZZZ Group Counseling for Substance Abuse Treatment, 12-Step (ICD-10-PCS; principal; 2016-09-06)
DX: F12.20 Cannabis dependence, uncomplicated (principal); F15.20 Other stimulant dependence, uncomplicated; F90.9 Attention-deficit hyperactivity disorder, unspecified type; F17.210 Nicotine dependence, cigarettes, uncomplicated; H00.013 Hordeolum externum right eye, unspecified eyelid